=== PATIENT | female | born 1990 | race Two or more races ===

== ENCOUNTER 2016-07-03 21:58 | Emergency (ER) | payer MEDICAID ==
[2016-07-04 00:11] LABS: AMORPHOUS SEDIMENT,URINE TRACE /HPF; APPEARANCE,URINE SLIGHTLY-CLOUDY; BILIRUBIN,URINE NEGATIVE (NEGATIVE); GLUCOSE, URINE NEGATIVE (NEGATIVE); KETONES,URINE NEGATIVE (NEGATIVE); LEUKOCYTE ESTERASE,URINE SMALL (NEGATIVE); NITRITE,URINE NEGATIVE (NEGATIVE); PROTEIN,URINE NEGATIVE (NEGATIVE); URINE SPECIFIC GRAVITY 1.025; UROBILINOGEN,URINE NEGATIVE mg/dL (<2.0)
--- NOTE | 2016-07-04 00:14 | ER Document Report ---
ED GI/ - General Chief Complaint: Abdominal Pain Stated Complaint: ABDOMINAL PAIN Time seen by provider: 00:10 Notes: Patient is a 25-year-old female that comes emergency department for chief complaint of a pain in her right lower abdominal/pelvic area, intermittent but seems to be worsening over the past 5 days. She denies nausea or vomiting, she states she had a normal bowel movement earlier today, she denies dysuria, she denies vaginal discharge, last [place]. About one week ago. She is sexually active with her . Patient denies any surgeries, daily medications, or any medical history. TRAVEL OUTSIDE OF THE [place] IN LAST 30 DAYS: No - Related Data Allergies/Adverse Reactions: No Known Allergies Allergy (Unverified 07/03/16 22:06) Past Medical History - General Information source: Patient - Social History Smoking Status: Never Smoker Frequency of alcohol use: None Drug Abuse: None Lives with: Family Family History: Reviewed & Not Pertinent - Medical History Medical History: Negative Surgical Hx: Negative - Immunizations Immunizations up to date: Yes Hx Diphtheria, Pertussis, Tetanus Vaccination: Yes Review of Systems - Review of Systems Constitutional: No symptoms reported EENT: No symptoms reported Cardiovascular: No symptoms reported Respiratory: No symptoms reported Gastrointestinal: See HPI Genitourinary: See HPI Female Genitourinary: See HPI Musculoskeletal: No symptoms reported Skin: No symptoms reported Hematologic/Lymphatic: No symptoms reported Neurological/Psychological: No symptoms reported Physical Exam - Vital signs Vitals: Temp Pulse BP Pulse Ox 97.4 F 71 111/66 100 07/03/16 22:08 07/03/16 22:08 07/03/16 22:08 07/03/16 22:08 Interpretation: Normal - General General appearance: Appears well, Alert In distress: None - Patient nervous appearing but otherwise is extremely well appearing, ambulates around the room without any difficulty - HEENT Head: Normocephalic, Atraumatic Eyes: Normal Conjunctiva: Normal Extraocular movements intact: Yes Eyelashes: Normal Pupils: PERRL Nasal: Normal Mouth/Lips: Normal Mucous membranes: Normal Pharynx: Normal Neck: Normal - Respiratory Respiratory status: No respiratory distress Chest status: Nontender Breath sounds: Normal Chest palpation: Normal - Cardiovascular Rhythm: Regular Heart sounds: Normal auscultation Murmur: No - Abdominal Inspection: Normal Distension: No distension Bowel sounds: Normal Tenderness: Other - Difficult to examine patient's abdomen because she is very shy and does not let me do a thorough exam; no obvious abnormality Organomegaly: No organomegaly - Back Back: Normal, Nontender. 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 This was requested because of mosque/cultural reasons. Difficult to perform his abdominal exam because patient will not allow me to do any thorough exam, she declines pelvic exam, CBC, chemistry, urinalysis are generally unremarkable (urinalysis has greater subcutaneous then leukocytes, trace leukocyte esterase, no nitrates, no bacteria). Ultrasound with no acute findings. Based on patient's description I suspect this is bowel , recommended she use a stool softener, follow with primary care, based on what I could examine and assess I do not see any evidence of emergent pathology or acute abdomen. I did discussed return precautions in detail. Patient states understanding, satisfaction, and agreement. - Vital Signs Vital signs: Temp Pulse Resp BP Pulse Ox 97.5 F 96 16 96/54 L 100 07/04/16 01:18 07/04/16 01:18 07/04/16 01:18 07/04/16 01:18 07/04/16 01:18 - Laboratory Result Diagrams: 07/04/16 00:23 07/04/16 00:23 Laboratory results interpreted by me: 07/03/16 07/04/16 23:38 00:23 RDW 14.2 H Ur Leukocyte Esterase SMALL H Urine Ascorbic Acid 40 H Discharge - Discharge Clinical Impression: Lower abdominal pain Condition: Stable Disposition: HOME, SELF-CARE Additional Instructions: The ultrasound does not show any abnormalities - no masses, free fluid, or anything concerning. Your workup is good - no concerning signs of infection, low blood counts, or any other abnormalities are seen. I recommend trying an [id number] stool softener for a few days, increase fluids and fiber, take ibuprofen if needed for pain. Follow-up with primary care. Please return immediately if you develop any concerning worsening symptoms including fever, vomiting, bloody bowel movements, or any other concerning symptoms.
[2016-07-04 00:38] LABS: ABSOLUTE BASOPHILS # (AUTO) 0.1 10^3/uL (0.0-0.2); ABSOLUTE EOSINOPHILS # (AUTO) 0.1 10^3/uL (0.0-0.6); ABSOLUTE LYMPHOCYTES (AUTO) 2.8 10^3/uL (0.5-4.7); ABSOLUTE MONOCYTES (AUTO) 0.5 10^3/uL (0.1-1.4); ABSOLUTE NEUT (AUTO) 5.1 10^3/uL (1.7-8.2); BASOPHILS % (AUTO) 0.6 % (0-2); EOSINOPHILS % (AUTO) 1.1 % (0-6); HEMATOCRIT 38.5 % (36.0-47.0); HEMOGLOBIN 13.5 g/dL (12.0-15.5); LYMPHOCYTES % (AUTO) 32.2 % (13-45); MEAN CORPUSCULAR HEMOGLOBIN 31.6 pg (27.0-33.4); MEAN CORPUSCULAR HGB CONC 34.9 g/dL (32.0-36.0); MEAN CORPUSCULAR VOLUME 90 fl (80-97); MONOCYTES % (AUTO) 6.2 % (3-13); RED BLOOD COUNT 4.26 10^6/uL (3.72-5.28); RED CELL DISTRIBUTION WIDTH 14.2 % (11.5-14.0); SEGMENTED NEUTROPHILS % (AUTO) 59.9 % (42-78); WHITE BLOOD COUNT 8.5 10^3/uL (4.0-10.5)
[2016-07-04 00:58] LABS: ALANINE AMINOTRANSFERASE 19 U/L (9-52); ALBUMIN 4.1 g/dL (3.5-5.0); ALKALINE PHOSPHATASE 49 U/L (38-126); ANION GAP 13 (5-19); ASPARTATE AMINO TRANSFERASE 17 U/L (14-36); BILIRUBIN,TOTAL 0.5 mg/dL (0.2-1.3); BLOOD UREA NITROGEN 10 mg/dL (7-20); CALCIUM 9.5 mg/dL (8.4-10.2); CARBON DIOXIDE 27 mmol/L (22-30); CHLORIDE 101 mmol/L (98-107); CREATININE RESULT 0.53 mg/dL (0.52-1.25); GLUCOSE 88 mg/dL (75-110); POTASSIUM 4.6 mmol/L (3.6-5.0); SODIUM 141.2 mmol/L (137-145)
[2016-07-04 02:00] VITALS: BP 96/54
== END 2016-07-04 01:20 | disposition home or self-care (01) ==
LOC: ER 21:58
DX: R10.2 Pelvic and perineal pain (principal); R10.31 Right lower quadrant pain
CPT/HCPCS: 36415; 76830; 80053; 81001; 81025; 83690; 85025; 93976; 99284

== ENCOUNTER → 2017-01-24 | Outpatient (CLI) | payer SELFPAY ==
--- NOTE | 2017-01-24 16:35 | RADIOLOGY REPORT (SQ) ---
EXAM DESCRIPTION: HYSTEROSALPINGOGRAM; HYSTERO CATH/INJECTION COMPLETED DATE/TIME: 01/24/2017 4:23 pm REASON FOR STUDY: INFERTILITY COMPARISON: None. PROCEDURE: PRE-PROCEDURE: Procedure was explained to the patient. She was told to expect cramping du ring the procedure, and possible spotting post procedure. PROCEDURE: The cervix was prepped in sterile fashion. Under direct visual inspection, the cervix was cannulated with the hysterosalpingogram catheter and contrast injected. TECHNIQUE: Temporal fluoroscopic images acquired during the procedure stored to PACS. FLUOROSCOPY TIME: 1 minutes 14 seconds. 18 images saved to PACS. LIMITATIONS: None. FINDINGS: UTERUS: No identified anomalies. No synechia. RIGHT ADNEXA: Normal size fallopian tube. Free spill of contrast into the peritoneal cavity. LEFT ADNEXA: There is contrast filling of the proximal fallopian tube only. There was no contrast vi sualized in the mid or distal tube or spillage into the peritoneal cavity. POST PROCEDURE: The patient tolerated the procedure with no adverse effects. IMPRESSION: THE RIGHT FALLOPIAN TUBE IS PATENT WITH FREE SPILLAGE OF CONTRAST. THE LEFT FALLOPIAN T UBE IS OCCLUDED. ONLY THE PROXIMAL PORTION OF THE LEFT TUBE FILLED WITH CONTRAST WITH NO FILLING DIS TALLY AND NO SPILLAGE INTO THE PERITONEAL CAVITY. COMMENT: Quality ID [id number]: Final reports for procedures using fluoroscopy that document radiation exp osure indices, or exposure time and number of fluorographic images (if radiation exposure indices are not available) TECHNICAL DOCUMENTATION: JOB ID: [id number] [employer]- All Rights Reserved
== END ==
LOC: RAD 14:46
PROVIDERS: ATTEND Obstetrics & Gynecology
DX: N97.9 Female infertility, unspecified (principal)
CPT/HCPCS: 58340; 74740

== ENCOUNTER 2017-06-09 17:36 | Emergency (ER) | payer OTHER ==
--- NOTE | 2017-06-09 18:33 | ER Document Report ---
ED GI/ - General Chief Complaint: Vaginal Bleeding Stated Complaint: ABDOMINAL PAIN Time Seen by Provider: 06/09/17 18:18 Mode of Arrival: Ambulatory Information source: Patient Notes: 26-year-old female complaining of low pelvic discomfort bilaterally and dyspareunia the last 2 times she had intercourse recently. No vaginal discharge. No dysuria frequency or urgency. She is supposed to have a salpingo -evaluation to see if her tubes are open because she is trying to get . Mild nausea. No vomiting or diarrhea. Normal Pap smear a year ago. G0. No abdominal surgeries. TRAVEL OUTSIDE OF THE [place] IN LAST 30 DAYS: No - Related Data Allergies/Adverse Reactions: No Known Allergies Allergy (Verified 06/09/17 17:39) Past Medical History - General Information source: Patient - Social History Smoking Status: Never Smoker Frequency of alcohol use: None Drug Abuse: None Lives with: Spouse/Significant other Family History: Reviewed & Not Pertinent - Medical History Medical History: Negative Surgical Hx: Negative - Immunizations Immunizations up to date: Yes Hx Diphtheria, Pertussis, Tetanus Vaccination: Yes Review of Systems - Review of Systems Constitutional: No symptoms reported EENT: No symptoms reported Cardiovascular: No symptoms reported Respiratory: No symptoms reported Gastrointestinal: No symptoms reported Genitourinary: No symptoms reported Female Genitourinary: See HPI Musculoskeletal: No symptoms reported Skin: No symptoms reported Hematologic/Lymphatic: No symptoms reported Neurological/Psychological: No symptoms reported Physical Exam - Vital signs Vitals: Temp Pulse Resp BP Pulse Ox 97.8 F 80 16 106/77 100 06/09/17 17:51 06/09/17 17:51 06/09/17 17:51 06/09/17 17:51 06/09/17 17:51 Interpretation: Normal - General General appearance: Appears well, Alert In distress: None - HEENT Head: Normocephalic, Atraumatic Eyes: Normal Pupils: PERRL Neck: Supple - Respiratory Respiratory status: No respiratory distress Chest status: Nontender Breath sounds: Normal Chest palpation: Normal - Cardiovascular Rhythm: Regular Heart sounds: Normal auscultation Murmur: No - Abdominal Inspection: Normal Distension: No distension Bowel sounds: Normal Tenderness: Nontender. No: Tender Organomegaly: No organomegaly - Genitourinary External exam: Normal Speculum exam: Cervix closed, Lesions - 2 white adherent plaques or ulcerations with a erythematous rim at 3:00 on the cervix.. No: Vaginal discharge Bimanuel exam: No: Cervical motion tender, Adnexal tenderness - Back Back: Normal, Nontender. No: CVA tenderness - Extremities General upper extremity: Normal inspection, Nontender, Normal color, Normal ROM , Normal temperature General lower extremity: Normal inspection, Nontender, Normal color, Normal ROM , Normal temperature, Normal weight bearing. No: Amanda's sign - Neurological Neuro grossly intact: Yes Cognition: Normal Orientation: AAOx4 [place] Coma Scale Eye Opening: Spontaneous [place] Coma Scale Verbal: Oriented [place] Coma Scale Motor: Obeys Commands [place] Coma Scale Total: 15 Speech: Normal Motor strength normal: LUE, RUE, LLE, RLE Sensory: Normal - Psychological Associated symptoms: Normal affect, Normal mood - Skin Skin Temperature: Warm Skin Moisture: Dry Skin Color: Normal Notes: see above Course - Vital Signs Vital signs: Temp Pulse Resp BP Pulse Ox 97.8 F 80 16 106/77 100 06/09/17 17:51 06/09/17 17:51 06/09/17 17:51 06/09/17 17:51 06/09/17 17:51 - Laboratory Laboratory results interpreted by me: 06/09/17 18:55 Urine Ascorbic Acid 40 H Discharge - Discharge Clinical Impression: Dyspareunia, cervix lesions, Bacterial vaginosis, Nausea Condition: Good Disposition: HOME, SELF-CARE Instructions: Metronidazole ([facility]), Nausea or Vomiting, Nonspecific ([facility]), Vaginosis, Bacterial ([facility]) Additional Instructions: Please call Dr. Burnett tomorrow and schedule a follow-up with him to look at the cervix lesions that I faraz the picture of for you The discomfort that you are feeling may affect whether you can have this test to look at sure fallopian tubes that is why he wanted to call Dr. Burnett No alcohol when you take the Flagyl for the bacterial vaginosis Call me tomorrow morning at 9 AM at [phone] the STD culture results the virus cervix culture will not be resulted until at least tuesday, Prescriptions: Metronidazole [Flagyl 500 mg Tablet] 500 mg PO BID #14 tablet Ondansetron HCl [Zofran 4 mg Tablet] 1 - 2 tab PO Q4H PRN #20 tablet PRN Reason: Referrals: KYLE BURNETT MD [ACTIVE STAFF] - Follow up as needed
[2017-06-09 19:15] LABS: APPEARANCE,URINE SLIGHTLY-CLOUDY; BILIRUBIN,URINE NEGATIVE (NEGATIVE); GLUCOSE, URINE NEGATIVE (NEGATIVE); KETONES,URINE NEGATIVE (NEGATIVE); LEUKOCYTE ESTERASE,URINE NEGATIVE (NEGATIVE); NITRITE,URINE NEGATIVE (NEGATIVE); PROTEIN,URINE NEGATIVE (NEGATIVE); URINE SPECIFIC GRAVITY 1.032; UROBILINOGEN,URINE NEGATIVE mg/dL (<2.0)
[2017-06-09] MEDS ORDERED: METOCLOPRAMIDE HCL 10 MG TABLET PO ONE (19:29)
[2017-06-09] MEDS ORDERED: ONDANSETRON 4 MG TAB.RAPDIS PO ONE (20:13)
[2017-06-09 20:47] VITALS: BP 115/67
== END 2017-06-09 20:15 | disposition home or self-care (01) ==
LOC: ER 17:36
DX: N76.4 Abscess of vulva (principal); B96.89 Other specified bacterial agents as the cause of diseases classified elsewhere; N94.10 Unspecified dyspareunia; N88.8 Other specified noninflammatory disorders of cervix uteri; R11.0 Nausea; R10.9 Unspecified abdominal pain; R10.2 Pelvic and perineal pain; N93.9 Abnormal uterine and vaginal bleeding, unspecified
CPT/HCPCS: 99284; 87086; 87210; 81025; 81001; 87250; 87491; 87591; S0119

== ENCOUNTER → 2017-07-06 | Outpatient (CLI) | payer SELFPAY ==
--- NOTE | 2017-07-06 15:30 | RADIOLOGY REPORT (SQ) ---
EXAM DESCRIPTION: HYSTEROSALPINGOGRAM; HYSTERO CATH/INJECTION COMPLETED DATE/TIME: 07/06/2017 3:15 pm REASON FOR STUDY: N97.9 INFERTILITY COMPARISON: Hysterosalpingogram 01/24/2017 PROCEDURE: PRE-PROCEDURE: Procedure was explained to the patient. She was told to expect cramping du ring the procedure, and possible spotting post procedure. PROCEDURE:Under direct visual inspection, the cervix was cannulated with the hysterosalpingogram cath eter and contrast injected. TECHNIQUE: Temporal fluoroscopic images acquired during the procedure stored to PACS. FLUOROSCOPY TIME: 2 seconds 8 digital radiographic images saved to PACS. LIMITATIONS: None. FINDINGS: UTERUS: No identified anomalies. No synechia. There is very mild narrowing of the cervix , at the cervix -lower uterine segment junction. This did not impede passage of contrast into the ut erus. RIGHT ADNEXA: Normal size fallopian tube. Free spill of contrast into the peritoneal cavity. LEFT ADNEXA: Normal size fallopian tube. Free spill of contrast into the peritoneal cavity. POST PROCEDURE: The patient tolerated the procedure with no adverse effects. IMPRESSION: ESSENTIALLY NORMAL HYSTEROSALPINGOGRAM. COMMENT: Quality ID 145: Final reports for procedures using fluoroscopy that document radiation exp osure indices, or exposure time and number of fluorographic images (if radiation exposure indices are not available) TECHNICAL DOCUMENTATION: JOB ID: [id number] [employer]- All Rights Reserved
== END ==
LOC: RAD 14:49
PROVIDERS: ATTEND Obstetrics & Gynecology
DX: N97.9 Female infertility, unspecified (principal)
CPT/HCPCS: 58340; 74740